=== PATIENT | female | born 2000 | race Caucasian/White ===

== ENCOUNTER 2024-08-26 19:40 | Emergency (ER) | payer MEDICAID ==
[~2024-08-26] VITALS: Ht 157.5 cm; Wt 44.5 kg
[2024-08-26 22:30] VITALS: BP 132/88; TEMP 98.9; O2SAT 100
== END 2024-08-26 23:28 | disposition home or self-care (01) ==
LOC: ER 20:05
DX: F41.9 Anxiety disorder, unspecified (principal); R20.2 Paresthesia of skin